=== PATIENT | female | born 1985 | race Caucasian/White ===

== ENCOUNTER 2018-08-06 16:01 | Emergency (ER) | payer BC ==
[~2018-08-06] VITALS: Ht 167.6 cm; Wt 65.7 kg
[2018-08-06 16:59] LABS: BASOPHILS # (AUTO) 0.05 x10^3/uL (0-0.1); BASOPHILS % (AUTO) 1 % (0-1); EOSINOPHILS # (AUTO) 0.24 x10^3/uL (0-0.4); EOSINOPHILS % (AUTO) 4 % (1-7); LYMPHOCYTES # (AUTO) 2.77 x10^3/uL (1-3.4); LYMPHOCYTES % (AUTO) 47 % (22-44); MD NO; MEAN CORPUSCULAR HEMOGLOBIN 28.3 pg (27.0-34.8); MEAN CORPUSCULAR HGB CONC 31.9 g/dL (32.4-35.8); MEAN CORPUSCULAR VOLUME 88.6 fL (80-100); MEAN PLATELET VOLUME 8.8 fL (7.4-10.4); MONOCYTES # (AUTO) 0.36 x10^3/uL (0.2-0.8); MONOCYTES % (AUTO) 6 % (2-9); NEUTROPHILS # (AUTO) 2.47 x10^3/uL (1.8-6.8); NEUTROPHILS % (AUTO) 42 % (42-75); PLATELET COUNT 345 x10^3/uL (130-400); RED BLOOD COUNT 4.72 x10^6/uL (3.82-5.3); RED CELL DISTRIBUTION WIDTH 16.8 % (9.6-15.2)
[2018-08-06 17:06] LABS: CULTURE INDICATED? YES; MICROSCOPIC INDICATED
[2018-08-06 17:11] LABS: ALANINE AMINOTRANSFERASE 13 U/L (12-78); ALBUMIN 3.8 g/dL (3.4-5.0); ANION GAP 8 mmol/L (5-15); CALCIUM 8.7 mg/dL (8.5-10.1); CHLORIDE 109 mmol/L (98-107); CREATININE 1.02 mg/dL (0.55-1.02)
[2018-08-06 17:16] LABS: ALKALINE PHOSPHATASE 39 U/L (45-117); BILIRUBIN,TOTAL 0.5 mg/dL (0.2-1.0); TOTAL PROTEIN 7.1 g/dL (6.4-8.2)
--- NOTE | 2018-08-06 17:46 | NUR ---
Pt to room 18 from lobby
--- NOTE | 2018-08-06 17:53 | NUR ---
Assumed care of patient. Dx'd with UTI at on Monday and started on Macrobid. Changed to Cipro on Monday based on culture results. Continues to have C/O bilat flank pain and bladder pain. Hx duplex kidney and frequent UTIs as a child. Daughter at bedside. Will continue to monitor.
[2018-08-06] MEDS ORDERED: CEFTRIAXONE PMX 1GM/50ML 50 ML ONE (18:47)
--- NOTE | 2018-08-06 18:53 | NUR ---
IV started and Abx started.
[2018-08-06] MEDS ORDERED: CEFTRIAXONE 1,000 MG in SODIUM CHLORIDE 0.9% 50 ML IVPB ONE (19:00)
[2018-08-06] MEDS ORDERED: SODIUM CHLORIDE FLUSH 10ML SYR IVF ONE (19:00)
[2018-08-06 20:03] VITALS: BP 129/81
== END 2018-08-06 20:24 | disposition home or self-care (01) ==
LOC: ED 19:28
DX: N30.00 Acute cystitis without hematuria (principal); R11.0 Nausea
CPT/HCPCS: 36415; 74176; 80053; 81001; 83690; 84703; 85025; 87086; 96365; 99284; J0696